=== PATIENT | female | born 2005 | race Caucasian/White ===

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

== ENCOUNTER 2024-08-14 09:34 | Emergency (ER) | payer OTHER, SELFPAY ==
[2024-08-14 09:34] VITALS: BP 111/66; PULSE 73; RESP 15; TEMP 36.4; O2SAT 98; BMI 33.0
--- NOTE | 2024-08-14 09:56 | CT_ITS ---
INDICATION: trauma EXAMINATION: CT BRAIN - CT Head or Brain W/O Contrast Injection TECHNIQUE: Multiple axial images were obtained of the head without intravenous contrast. The protocol utilizes one or more of the following dose reduction techniques: automated exposure control, adjustment of mA and/or kV according to patient size,and/or use of iterative reconstruction technique. IV Contrast dosage and agent: None. RADIATION DOSAGE (If Supplied By Facility): CTDIvol = ( 44.99 ) mGy, DLP = ( 796.11 ) mGycm COMPARISON: Prior study dated: 08/16/2022 FINDINGS: BRAIN PARENCHYMA: No intra- or extra-axial hemorrhage. No evidence of acute infarct. No intracranial mass or mass effect. There is preservation of the briceño/white matter interface. Posterior fossa structures are unremarkable. CSF SPACES: Appropriate for age. No hydrocephalus. Basal cisterns are patent. CALVARIUM, SKULL BASE, PARANASAL SINUSES AND MASTOID AIR CELLS: Clear. No discrete lytic or blastic abnormalities. ORBITS: Both globes, extraocular muscles, optic nerves and retrobulbar fat appear unremarkable. CT/Brain/Head without Contrast IMPRESSION: Negative Brain CT without contrast. Electronically Signed: Golden Benito MD at 10:31 EDT ,
--- NOTE | 2024-08-14 10:36 | EX.ED.GENINJ ---
HPI History of Present Illness Chief Complaint: Head Injury Informant: patient Narrative Narrative: Patient had a head injury 2 days ago and has had a headache ever since. She was kicked in the back of the head by a horse. Her neck is sore, she had a whiplash-type injury, but she has no neurologic symptoms, memory loss, nausea or vomiting or vision changes. No confusion. She states she was advised to come get a CAT scan to rule out brain bleed. She takes no anticoagulants. Other than the headache and neck soreness she has had no other symptoms. [facility] Medical History Anxiety Home Medications ?Medication ?Instructions ?Recorded ?Last Taken ?Type sertraline 100 mg tablet 150 mg PO DAILY 08/14/24 Unknown History Allergy/AdvReac Type Severity Reaction Status Date / Time amoxicillin Allergy Rash Verified 08/14/24 09:37 Social History Smoking Status: Never smoker ROS ROS ED Constitutional Constitutional ED: Denies chills or fever(s) Eyes Eyes: Denies change in vision or diplopia ENT ENT ED: Denies rhinorrhea or sore throat Cardiovascular Cardiovascular: Denies chest pain or palpitations Respiratory/Chest Respiratory/Chest: Denies cough or dyspnea Gastrointestinal Gastrointestinal: Denies abdominal pain, diarrhea, nausea or vomiting Genitourinary Genitourinary ED: Denies dysuria or hematuria Musculoskeletal Musculoskeletal: Reports neck pain; Denies back pain Integumentary Denies abscess or rash Neurologic Neurologic: Reports headache(s); Denies paresthesias or weakness Psychiatric Psychiatric: Denies anxiety or suicidal thoughts EXAM Physical Exam Const Vital Signs: 08/14/24 09:34 08/14/24 09:54 Temperature 97.5 F L Temperature Source Oral Pulse Rate 73 Respiratory Rate 15 Respiratory Effort Normal Non-Labored Blood Pressure 111/66 Blood Pressure Mean 81 Pulse Ox 98 Oxygen Delivery Method Room Air Positive well nourished and well developed General Appearance ED: well developed and NAD HEENT Reports moist mucous membranes HEENT Narrative: Mild tenderness in the right occipital parietal scalp and the left lower occipital scalp without evidence of trauma or boggy hematoma or crepitance/depression. No Lane sign. No raccoon eyes. No CSF otorhinorrhea. No hemotympanum. normocephalic and atraumatic Eyes PERRL and EOMs intact bilaterally Neck full ROM and supple Neck Narrative: Diffuse bilateral paraspinal tenderness, no midline step-off or signs of trauma. Resp normal respiratory effort Back/Spine no CVA tenderness General Back: other FROM Extremity normal to inspection General Extremety ED: Negative for edema, pulses abnormal or tenderness General Extremity: Negative for edema or pulses abnormal Neuro oriented x3, CN's II-XII intact bilaterally and no sensory deficits noted [place] Coma Scale: document GCS findings Spontaneous Obeys Commands Oriented 15 Sensorium / Orientation: awake and alert Motor Exam: strength 5/5 throughout Psych mental status grossly normal and thought process normal Skin no rashes or lesions noted and no wounds MDM MDM MDM Narrative Medical decision making narrative: Patient was advised that she meets multiple criteria for not needing an emergent CT as she very unlikely has intracranial hemorrhage or skull fracture. She states that her mom and her doctor want the test which I was happy to obtain. It is negative I reviewed the images and the result which I agree with. Patient reassured, she is comfortable using Tylenol and ibuprofen and following up for now. Radiography Diagnostic Testing: Clinical Impression(s) from Imaging Studies Brain CT 08/14/24 09:56 IMPRESSION: Negative Brain CT without contrast. Electronically Signed: Golden Benito MD at 10:31 EDT , Discharge Plan Triage Chief Complaint: Head Injury ED Provider: Ronak Castillo Dx/Rx/DC Orders Clinical Impression: Closed head injury without loss of consciousness Instructions: ED Head Injury (Adult) Prescriptions: No Action sertraline 100 mg tablet 150 mg PO DAILY Primary Care Provider: CINDI ELIZONDO Referrals: CINDI ELIZONDO [Other] - 1 Week if not improving Print Language: [place] Disposition Disposition: Home, Self Care
== END 2024-08-14 10:47 | disposition home or self-care (01) ==
LOC: ED 10:40
PROVIDERS: Emergency Provider Emergency Medicine; Visit Provider Emergency Medicine
DX: S09.90XA Unspecified injury of head, initial encounter (principal); W55.12XA Struck by horse, initial encounter; M54.2 Cervicalgia; R40.2412 Glasgow coma scale score 13-15, at arrival to emergency department; F41.9 Anxiety disorder, unspecified; Z88.0 Allergy status to penicillin; Z79.899 Other long term (current) drug therapy
CPT/HCPCS: 70450; 99282